=== PATIENT | male | born 1975 | race African-American/Black ===

== ENCOUNTER 2025-01-07 10:34 | Emergency (ER) | payer OTHER ==
[~2025-01-07] VITALS: Ht 182.9 cm; Wt 90.7 kg
[2025-01-07] MEDS ORDERED: FAMOTIDINE/PF INJ 20 MG/2 ML VIAL IV ONE (11:07)
[2025-01-07] MEDS ORDERED: MAG HYDROX/AL HYDROX/SIMETH 30 ML UDC ONE (11:07)
[2025-01-07 11:12] LABS: PLATELET COUNT (AUTO) 135 K/uL (150-450); RED BLOOD CELL COUNT(AUTO) 5.23 MIL/uL (4.5-6.0); RED CELL DISTRIBUTION WIDTH 12.5 % (11.5-15.0); WHITE BLOOD COUNT (AUTO) 9.8 K/uL (4.3-11.0)
[2025-01-07 11:14] LABS: CALCIUM, SERUM 9.0 mg/dL (8.5-10.1); CREATININE 0.8 mg/dL (0.6-1.3); SODIUM SERUM 135 mmol/L (136-145); UREA NITROGEN, BLOOD 12 mg/dL (7-18)
[2025-01-07] MEDS: MAG HYDROX/AL HYDROX/SIMETH 30 ML UDC PO ONE (11:14)
[2025-01-07] MEDS: FAMOTIDINE/PF INJ 20 MG/2 ML VIAL IV ONE (11:14)
[2025-01-07] MEDS ORDERED: OMEP20TA20 PO (13:52)
[2025-01-07 15:23] VITALS: BP 141/87; TEMP 98.3; O2SAT 98
== END 2025-01-07 15:23 | disposition home or self-care (01) ==
LOC: ER 10:45
DX: R07.89 Other chest pain (principal); F17.200 Nicotine dependence, unspecified, uncomplicated; Z79.899 Other long term (current) drug therapy
CPT/HCPCS: 99285; 96374; 71045; 93005; 85025; 80048; 36415; 84484 ×2; J1308